=== PATIENT | male | born 1965 | race African-American/Black ===

== ENCOUNTER 2021-08-08 21:26 | Emergency (ER) | payer SELFPAY ==
--- NOTE | ~2021-08-08 | XR_ITS ---
XR chest 2V DATE: 08/08/2021 22:30 INDICATION: Intermittent left-sided burning chest pain since June TECHNIQUE: PA and lateral COMPARISON: None FINDINGS: Normal heart size. Is mild aortic unfolding. No hilar or mediastinal enlargement. No pulmonary infiltrate or consolidation, pleural effusion or pulmonary vascular congestion or pneumo thorax. IMPRESSION: No active cardiopulmonary disease Reviewed, dictated and finalized at location A. TRICAL ENGINEERING MANAGER
[2021-08-08 21:45] VITALS: BP 108/80; PULSE 109; RESP 18; O2SAT 99
--- NOTE | 2021-08-08 22:04 | ECG_ITS ---
Measurements Intervals [place] Rate: 109 P: 54 NE: 176 QRS: -61 QRSD: 109 T: 52 QT: 339 QTc: 458 Interpretive Statements SINUS TACHYCARDIA VENTRICULAR TRIGEMINY INCOMPLETE RIGHT BUNDLE BRANCH BLOCK LEFT ANTERIOR FASCICULAR BLOCK ABNORMAL ECG Electronically Signed On 08-10-2021 17:13:53 CONTENT MANAGER by Sathya Bañuelos D.O.
[2021-08-08 22:15] LABS: Basophils Percent Auto 0.4 % (0.2-1.2); Eosinophils Absolute Auto 0.1 K/mm3 (0-0.3); Eosinophils Percent Auto 1.1 % (0-4.4); Hematocrit 40.9 % (42.0-52.0); Hemoglobin 14.5 g/dL (14.0-18.0); Immature Granulocyte Absolute 0.01 K/mm3 (0.00-0.031); Immature Granulocyte Percent A 0.1 % (0-0.5); Lymphocytes Absolute Auto 1.72 K/mm3 (0.9-3.2); Lymphocytes Percent Auto 24.4 % (18.3-44.2); Mean Corpuscular HGB Conc 35.5 g/dl (32-36); Mean Corpuscular Hemoglobin 31.5 pg (26-34); Mean Corpuscular Volume 88.9 fl (80-100); Mean Platelet Volume 9.7 fl (7.4-10.4); Monocytes Absolute Auto 0.8 K/mm3 (0.1-0.6); Monocytes Percent Auto 11.1 % (2.6-8.5); Neutrophils Absolute Auto 4.4 K/mm3 (1.3-6.7); Neutrophils Percent Auto 62.9 % (45.5-73.1); Platelet Count Result 263 k/mm3 (150-375); Red Cell Distribution Width 12.2 % (11.5-14.5)
[2021-08-08 22:28] LABS: Partial Thromboplastin Time 26.2 SECONDS (22.3-36.8); Prothrombin Time 13.3 Seconds (11.1-14.7)
[2021-08-08 22:29] LABS: Alanine Aminotransferase 24 U/L (4-50); Albumin Level 4.5 g/dL (3.5-5.1); Alkaline Phosphatase 74 U/L (38-126); Anion Gap 10 mmol/L (8-16); Aspartate Amino Transferase 32 U/L (17-59); Bilirubin,Total 0.5 mg/dL (0.2-1.3); Blood Urea Nitrogen 23 mg/dL (9-20); Calcium 9.6 mg/dL (8.4-10.2); Carbon Dioxide 27 mmol/L (22-30); Chloride 100 mmol/L (98-107); Estimated CRCL calculation 69 ml/min; Estimated Glomerular Filt Rate 49; Glucose 128 mg/dL (65-110); Lipase 110 U/L (23-300); Potassium 4.3 mmol/L (3.4-5.0); Sodium 137 mmol/L (137-145)
[2021-08-08 22:40] LABS: Troponin I < 0.012 ng/mL (0.000-0.034)
[2021-08-08 23:56] VITALS: BP 125/91; PULSE 88; RESP 19; TEMP 36.7; O2SAT 97
[2021-08-09] VITALS (8 sets, daily range): BP systolic 103–148; BP diastolic 62–97; PULSE 73–88; RESP 13–19; O2SAT 95–99
[2021-08-09 02:33] LABS: Troponin I < 0.012 ng/mL (0.000-0.034)
[2021-08-09] MEDS: BELLADONNA ALK/PHENOB ELIX 10 ML, MAG HYDROX/ALUMINUM HYD/SIMETH 30 ML, LIDOCAINE HCL 2... PO (04:12)
--- NOTE | 2021-08-09 04:12 | ED.GENADULT ---
HPI - General Adult General Chief complaint: Chest Pain Stated complaint: Chest pain Time Seen by Provider: 08/09/21 03:49 History of Present Illness HPI narrative: Patient 55-year-old gentleman who presents the emergency department with chief complaint of chest discomfort. Patient reports that he was recently [facility] after he was diagnosed with a pulmonary embolism patient states that he has been taking his Eliquis although initially was not following directions adequately-infection he has noticed that he is having a burning sensation in his chest that is worse with eating patient states that this feels different from whenever he had the pulmonary embolism and states that he feels more burning that it does sharp and pleuritic. Patient denies shortness of breath at this time Related Data Allergies Allergy/AdvReac Type Severity Reaction Status Date / Time No Known Allergies Allergy Verified 08/09/21 02:43 Review of Systems Review of Systems: A 10 system review of systems was completed on the patient and is negative except for what is stated in the HPI. Nursing and ancillary documentation was reviewed. Exam Narrative: GENERAL: Well-appearing, well-nourished, and in no acute distress. HEAD: Normocephalic, atraumatic. EYES: PERRLA and EOMI. ENT: Nares clear, no rhinorrhea or epistaxis. Mucous membranes moist. NECK: Supple. CHEST: Clear to auscultation. No respiratory distress. HEART: Regular rate and rhythm. No murmur heard. Normal peripheral pulses. ABDOMEN: Soft, nontender, nondistended, normal active bowel sounds. EXTREMITIES: Normal range of motion. No edema. SKIN: Warm, dry, no rash. NEURO: No focal deficits. Alert and oriented x3. PSYCH: Normal mood and affect. Course Course Emergency Course: EKG is sinus rhythm rate of [address] elevation or ST depression there are occasional PVCs Vital Signs Vital signs: Vital Signs Pulse Rate 109 H 08/08/21 21:45 Respiratory Rate 18 08/08/21 21:45 Blood Pressure 108/80 08/08/21 21:45 Pulse Oximetry 99 08/08/21 21:45 Temperature 36.7 C 08/08/21 23:56 Pulse Rate 73 08/09/21 04:59 Respiratory Rate 14 08/09/21 04:59 Blood Pressure 131/93 H 08/09/21 04:59 Pulse Oximetry 98 08/09/21 04:59 Medical Decision Making Vital Signs Vital Signs: Vital Signs Pulse Rate 109 H 08/08/21 21:45 Respiratory Rate 18 08/08/21 21:45 Blood Pressure 108/80 08/08/21 21:45 Pulse Oximetry 99 08/08/21 21:45 Temperature 36.7 C 08/08/21 23:56 Pulse Rate 73 08/09/21 04:59 Respiratory Rate 14 08/09/21 04:59 Blood Pressure 131/93 H 08/09/21 04:59 Pulse Oximetry 98 08/09/21 04:59 Lab Data Result diagrams: 08/08/21 22:09 08/08/21 22:09 Labs: Lab Results 08/08/21 08/08/21 08/08/21 Range/Units 22:09 22:09 22:09 WBC 7.0 (4.5-10.0) K/mm3 RBC 4.60 (4.6-6.20) M/mm3 Hgb 14.5 (14.0-18.0) g/dL Hct 40.9 L (42.0-52.0) % MCV 88.9 (80-100) fl MCH 31.5 (26-34) pg MCHC 35.5 (32-36) g/dl RDW 12.2 (11.5-14.5) % Plt Count 263 (150-375) k/mm3 MPV 9.7 (7.4-10.4) fl Immature Gran % (Auto) 0.1 (0-0.5) % Neut % (Auto) 62.9 (45.5-73.1) % Lymph % (Auto) 24.4 (18.3-44.2) % [place] % (Auto) 11.1 H (2.6-8.5) % Eos % (Auto) 1.1 (0-4.4) % Baso % (Auto) 0.4 (0.2-1.2) % Lymph # (Auto) 1.72 (0.9-3.2) K/mm3 [place] # (Auto) 0.8 H (0.1-0.6) K/mm3 Eos # (Auto) 0.1 (0-0.3) K/mm3 Baso # (Auto) 0.0 (0.0-0.1) K/mm3 Abs Immat Gran (auto) 0.01 (0.00-0.031) K/mm3 Absolute Neuts (auto) 4.4 (1.3-6.7) K/mm3 Absolute Nucleated RBC 0.0 (0.0-0.012) K/mm3 Nucleated RBC % 0.0 (0.0-0.2) % PT 13.3 (11.1-14.7) Seconds INR 1.0 APTT 26.2 (22.3-36.8) SECONDS Sodium 137 (137-145) mmol/L Potassium 4.3 (3.4-5.0) mmol/L Chloride 100 (98-107) mmol/L Carbon Dioxide 27 (22-30) mmol/L Anion Gap
== END 2021-08-09 05:42 | disposition home or self-care (01) ==
PROVIDERS: Emergency Provider Emergency Medicine
DX: R07.89 Other chest pain (principal); K21.9 Gastro-esophageal reflux disease without esophagitis; Z86.711 Personal history of pulmonary embolism; Z79.01 Long term (current) use of anticoagulants; R00.0 Tachycardia, unspecified; R00.8 Other abnormalities of heart beat; I45.2 Bifascicular block
CPT/HCPCS: 36415; 71046; 80053; 83690; 84484; 85025; 85610; 85730; 93005; 99284; A9270

== ENCOUNTER 2021-08-13 12:23 | Emergency (ER) | payer SELFPAY ==
--- NOTE | ~2021-08-13 | XR_ITS ---
EXAMINATION: XR chest 2V 08/13/2021 13:00 INDICATION: Chest pain PROCEDURE: PA and lateral views of the chest COMPARISON: 08/08/2021 FINDINGS: The lungs are clear. The cardiomediastinal silhouette is within normal limits. There are no pleural effusions. There is no pneumothorax suspected. IMPRESSION: 1: NO ACUTE CARDIOPULMONARY DISEASE. Reviewed, dictated and finalized at location A. LING ENGINEERING MANAGER
--- NOTE | 2021-08-13 12:25 | ECG_ITS ---
Measurements Intervals [place] Rate: 97 P: 57 MN: 191 QRS: -52 QRSD: 112 T: 36 QT: 356 QTc: 454 Interpretive Statements SINUS RHYTHM VENTRICULAR TRIGEMINY LEFT ANTERIOR FASCICULAR BLOCK ABNORMAL ECG Electronically Signed On 08-13-2021 15:15:25 MULTICULTURAL SERVICES LIBRARIAN by Sathya Bañuelos D.O.
[2021-08-13 12:30] VITALS: BP 142/93; PULSE 76; RESP 20; TEMP 35.5; O2SAT 99
[2021-08-13 12:43] LABS: Basophils Percent Auto 0.3 % (0.2-1.2); Eosinophils Percent Auto 0.4 % (0-4.4); Hematocrit 41.1 % (42.0-52.0); Hemoglobin 14.6 g/dL (14.0-18.0); Immature Granulocyte Absolute 0.01 K/mm3 (0.00-0.031); Immature Granulocyte Percent A 0.1 % (0-0.5); Lymphocytes Absolute Auto 1.37 K/mm3 (0.9-3.2); Lymphocytes Percent Auto 19.3 % (18.3-44.2); Mean Corpuscular HGB Conc 35.5 g/dl (32-36); Mean Corpuscular Hemoglobin 31.5 pg (26-34); Mean Corpuscular Volume 88.6 fl (80-100); Mean Platelet Volume 9.7 fl (7.4-10.4); Monocytes Absolute Auto 0.5 K/mm3 (0.1-0.6); Monocytes Percent Auto 6.3 % (2.6-8.5); Neutrophils Absolute Auto 5.2 K/mm3 (1.3-6.7); Neutrophils Percent Auto 73.6 % (45.5-73.1); Platelet Count Result 272 k/mm3 (150-375); Red Blood Count 4.64 M/mm3 (4.6-6.20); Red Cell Distribution Width 12.2 % (11.5-14.5); White Blood Count 7.1 K/mm3 (4.5-10.0)
[2021-08-13 12:52] LABS: Prothrombin Time 13.4 Seconds (11.1-14.7)
[2021-08-13 12:53] LABS: Alanine Aminotransferase 21 U/L (4-50); Albumin Level 4.6 g/dL (3.5-5.1); Alkaline Phosphatase 71 U/L (38-126); Anion Gap 10 mmol/L (8-16); Aspartate Amino Transferase 27 U/L (17-59); Bilirubin,Total 0.6 mg/dL (0.2-1.3); Blood Urea Nitrogen 20 mg/dL (9-20); Calcium 9.7 mg/dL (8.4-10.2); Carbon Dioxide 30 mmol/L (22-30); Chloride 101 mmol/L (98-107); Estimated CRCL calculation 73 ml/min; Estimated Glomerular Filt Rate > 60; Glucose 118 mg/dL (65-110); Lipase 89 U/L (23-300); Partial Thromboplastin Time 26.3 SECONDS (22.3-36.8); Potassium 4.7 mmol/L (3.4-5.0); Sodium 141 mmol/L (137-145)
[2021-08-13 13:05] LABS: Troponin I < 0.012 ng/mL (0.000-0.034)
[2021-08-13 14:48] VITALS: BP 132/78; PULSE 88; RESP 20; TEMP 37; O2SAT 98
--- NOTE | 2021-08-13 17:55 | ED.GENADULT ---
HPI - General Adult General Chief complaint: Chest Pain Stated complaint: CP, high BP Time Seen by Provider: 08/13/21 17:53 Source: patient Mode of arrival: ambulatory Limitations: no limitations History of Present Illness HPI narrative: Patient is here for evaluation of intermittent hypertension on his home machine. He states that he also cannot sleep because he is awakened by a racing heart. He was recently diagnosed with a right upper lobe PE and has been treated with Eliquis. He is very anxious about this blood clot. He also states that several days ago he had numbness in both legs. It is since resolved, so he was worried that he may have bilateral lower extremity blood clots. They switched his antihypertensive from amlodipine to losartan last week. He was seen here 4 days ago with same complaint. 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 Exam Const: General: healthy appearing and no acute distress Orientation/consciousness: patient oriented x3 HENMT: Head: normal to inspection Eyes: Conjunctivae: conjunctivae normal Pupils: Equal, round and reactive pupils present Chest: Chest palpation & inspection: normal inspection of the chest Resp: Effort & Inspection: normal respiratory effort Auscultation: clear to auscultation bilaterally Cardio: Rate: regular rate Rhythm: regular rhythm GI: GI Palp: Yes Soft to palpation Auscultation: normal bowel sounds Skin: General skin exam: normal color Neuro: General: patient oriented x3 and no focal motor deficits Extrem: General: normal to inspection and no clubbing, cyanosis or edema Psych: Appearance: grossly normal Affect: Anxious affect present Course Course Emergency Course: Patient is very anxious about the blood clot in his lung, he takes his blood pressure repeatedly at home. He is jogging regularly, and eating a high protein diet. Had a lot of discussion about normal blood pressure ranges, calming himself, all the things that he is doing right to take care of himself. He has an appointment with his PMD 08/20. Reviewed his labs with him and he is calm and ready to go. Vital Signs Vital signs: Vital Signs Temperature 35.5 C L 08/13/21 12:30 Pulse Rate 76 08/13/21 12:30 Respiratory Rate 20 08/13/21 12:30 Blood Pressure 142/93 H 08/13/21 12:30 Pulse Oximetry 99 08/13/21 12:30 Temperature 37.0 C 08/13/21 14:48 Pulse Rate 88 08/13/21 14:48 Respiratory Rate 20 08/13/21 14:48 Blood Pressure 132/78 08/13/21 14:48 Pulse Oximetry 98 08/13/21 14:48 Medical Decision Making Vital Signs Vital Signs: Vital Signs Temperature 35.5 C L 08/13/21 12:30 Pulse Rate 76 08/13/21 12:30 Respiratory Rate 20 08/13/21 12:30 Blood Pressure 142/93 H 08/13/21 12:30 Pulse Oximetry 99 08/13/21 12:30 Temperature 37.0 C 08/13/21 14:48 Pulse Rate 88 08/13/21 14:48 Respiratory Rate 20 08/13/21 14:48 Blood Pressure 132/78 08/13/21 14:48 Pulse Oximetry 98 08/13/21 14:48 Lab Data Result diagrams: 08/13/21 12:37 08/13/21 12:37 Labs: Lab Results 08/13/21 08/13/21 08/13/21 Range/Units 12:37 12:37 12:37 WBC 7.1 (4.5-10.0) K/mm3 RBC 4.64 (4.6-6.20) M/mm3 Hgb 14.6 (14.0-18.0) g/dL Hct 41.1 L (42.0-52.0) % MCV 88.6 (80-100) fl MCH 31.5 (26-34) pg MCHC 35.5 (32-36) g/dl RDW 12.2 (11.5-14.5) % Plt Count 272 (150-375) k/mm3 MP
--- NOTE | 2021-08-13 18:03 | PC.NURSE ---
aspirin with held due to currently on eliquis
--- NOTE | 2021-08-13 18:10 | PC.NURSE ---
Patient presents to ED with report of feelings of chest pain. Patient reports episodes of palpitations prior and spikes in high blood pressure. Patient being treated for PE and on eliquis. Provider in to see patient. 20g IV initiated in left FA.
[2021-08-13 18:35] VITALS: BP 145/100; PULSE 88; RESP 12; O2SAT 99
[2021-08-13 18:36] VITALS: PULSE 80
[2021-08-13 18:59] LABS: Troponin I < 0.012 ng/mL (0.000-0.034)
[2021-08-13 19:13] VITALS: BP 133/93; PULSE 79; RESP 18; O2SAT 98
[2021-08-13 20:01] VITALS: BP 127/79; PULSE 71; RESP 18; O2SAT 98
== END 2021-08-13 20:03 | disposition home or self-care (01) ==
PROVIDERS: Emergency Provider Family Medicine
DX: I10 Essential (primary) hypertension (principal); F41.9 Anxiety disorder, unspecified; Z86.711 Personal history of pulmonary embolism; R00.8 Other abnormalities of heart beat; I44.4 Left anterior fascicular block; Z79.01 Long term (current) use of anticoagulants
CPT/HCPCS: 36415; 71046; 80053; 83690; 84484; 85025; 85610; 85730; 93005; 99284; A9270

== ENCOUNTER 2022-06-18 15:22 | Observation (INO) | payer SELFPAY ==
[2022-06-18] VITALS (18 sets, daily range): BP systolic 122–148; BP diastolic 88–107; PULSE 65–102; RESP 12–18; TEMP 36.1–36.4; O2SAT 95–100; BMI 37.0
--- NOTE | ~2022-06-18 | XR_ITS ---
EXAMINATION: XR chest 2V 06/18/2022 16:41 INDICATION: Chest pain and shortness of breath PROCEDURE: 2 view chest COMPARISON: 08/13/2021 FINDINGS: The lungs are clear. The cardiomediastinal silhouette is within normal limits. There are no pleural effusions. There is no pneumothorax suspected. There is calcified granuloma in the left mid thorax. IMPRESSION: 1: NO ACUTE CARDIOPULMONARY DISEASE. Reviewed, dictated and finalized at location B.
--- NOTE | 2022-06-18 15:29 | ECG_ITS ---
Measurements Intervals [place] Rate: 92 P: 40 DC: 196 QRS: -57 QRSD: 122 T: 46 QT: 371 QTc: 460 Interpretive Statements SINUS RHYTHM LEFT ANTERIOR FASCICULAR BLOCK [QRS AXIS <= -45, QR IN I, RS IN II] INCOMPLETE RIGHT BUNDLE BRANCH BLOCK COMPARED TO ECG 08/13/2021 12:30:16 NO SIGNIFICANT CHANGES Electronically Signed On 06-18-2022 16:01:41 CDT by Tawanna Cade M.D.
[2022-06-18 15:46] LABS: Basophils Percent Auto 0.4 % (0.2-1.2); Eosinophils Percent Auto 0.4 % (0-4.4); Hematocrit 46.5 % (42.0-52.0); Immature Granulocyte Absolute 0.01 K/mm3 (0.00-0.031); Immature Granulocyte Percent A 0.2 % (0-0.5); Lymphocytes Absolute Auto 1.04 K/mm3 (0.9-3.2); Lymphocytes Percent Auto 19.5 % (18.3-44.2); Mean Corpuscular HGB Conc 34.4 g/dl (32-36); Mean Corpuscular Hemoglobin 30.7 pg (26-34); Mean Corpuscular Volume 89.3 fl (80-100); Mean Platelet Volume 9.3 fl (7.4-10.4); Monocytes Absolute Auto 0.5 K/mm3 (0.1-0.6); Monocytes Percent Auto 9.2 % (2.6-8.5); Neutrophils Absolute Auto 3.8 K/mm3 (1.3-6.7); Neutrophils Percent Auto 70.3 % (45.5-73.1); Platelet Count Result 244 k/mm3 (150-375); Red Blood Count 5.21 M/mm3 (4.6-6.20); Red Cell Distribution Width 12.4 % (11.5-14.5); White Blood Count 5.3 K/mm3 (4.5-10.0)
[2022-06-18 16:00] LABS: Alanine Aminotransferase 24 U/L (6-50); Albumin Level 4.7 g/dL (3.5-5.1); Alkaline Phosphatase 73 U/L (38-126); Anion Gap 11 mmol/L (8-16); Aspartate Amino Transferase 28 U/L (17-59); Bilirubin,Total 0.8 mg/dL (0.2-1.3); Blood Urea Nitrogen 16 mg/dL (9-20); Calcium 9.3 mg/dL (8.4-10.2); Carbon Dioxide 24 mmol/L (22-30); Chloride 104 mmol/L (98-107); Estimated CRCL calculation 100 ml/min; Estimated Glomerular Filt Rate > 60; Glucose 96 mg/dL (65-110); Potassium 4.1 mmol/L (3.4-5.0); Sodium 139 mmol/L (137-145)
--- NOTE | 2022-06-18 20:15 | ED.GENADULT ---
HPI - General Adult General Chief complaint: Shortness of Breath/Dyspnea Stated complaint: SOB Time Seen by Provider: 06/18/22 20:10 Source: RN notes reviewed History of Present Illness HPI narrative: Patient presents emergency room from home for chest pain. Patient states he has been having intermittent chest pain over the left side of his chest this been associated with shortness of breath. States that the chest pain is described as a burning and heaviness does not know anything that makes the pain better or worse. He states that he had been at another hospital and told that he needed a CT angio of his heart however he is unable to tell me which hospital that was that he denies any fevers or chills abdominal pain nausea or vomiting states he does have a history of pulmonary embolisms and is on Eliquis which she has been taking. Patient is a poor historian Related Data Allergies Allergy/AdvReac Type Severity Reaction Status Date / Time No Known Allergies Allergy Verified 08/09/21 02:43 Review of Systems Review of Systems: Gen.: Denies fevers or chills ENT: Denies congestion Respiratory: D reports shortness of breath CV: Reports GI: Denies abdominal pain nausea, emesis or diarrhea Musculoskeletal: Denies back pain or muscle pain Neuro: Denies numbness, tingling, weakness or focal weakness Skin: Denies rash Except as documented, all other systems reviewed and negative PMFSH Past Medical History Medical History (Updated 06/18/22 @ 21:54 by Pino Rowe DO) Hypercholesterolemia Hypertension Pulmonary embolism Social History Social History Smoking status: Never smoker Alcohol intake: never Substance use: never Additional occupation/education comments: truck operator Exam Narrative: APPEARANCE: No acute distress, nontoxic, resting in bed EYES: EOMI HEENT: Normocephalic, atraumatic, OMM RESPIRATORY: No respiratory distress Clear to auscultation bilaterally with no rhonchi wheezing or rales. CARDIOVASCULAR: Regular rate and rhythm without murmurs rubs or gallops. ABDOMINAL: Soft, nontender, nondistended, no rebound or guarding MUSCULOSKELETAl: Moves all extremities. No clubbing, cyanosis or edema. NEURO: Awake and alert. Following commands, speech normal, no focal deficits SKIN:: Warm, dry. No rashes lesions or abrasions PSYCHIATRIC: Normal affect/mood, Course Course Emergency Course: Discussed with Dr. De Santiago presentation work-up agrees with consult Discussed with Dr. Russell agrees with admission Discussed with patient and family results of workup and diagnosis. Discussed need for admission. Patient and family understand and agree to current treatment plan Vital Signs Vital signs: Vital Signs Temperature 97.0 F L 06/18/22 15:25 Pulse Rate 102 H 06/18/22 15:25 Respiratory Rate 18 06/18/22 15:25 Blood Pressure 129/92 H 06/18/22 15:25 Pulse Oximetry 100 06/18/22 15:25 Oxygen Delivery Room Air 06/18/22 15:25 Temperature 97.0 F L 06/18/22 15:25 Pulse Rate 102 H 06/18/22 15:25 Respiratory Rate 18 06/18/22 15:25 Blood Pressure 129/92 H 06/18/22 15:25 Pulse Oximetry 100 06/18/22 20:13 Oxygen Delivery Room Air 06/18/22 20:13 Medical Decision Making Vital Signs Vital Signs: Vital Signs Temperature 97.0 F L 06/18/22 15:25 Pulse Rate 102 H 06/18/22 15:25 Respiratory Rate 18 06/18/22 15:25 Blood Pressure 129/92 H 06/18/22 15:25 Pulse Oximetry 100 06/18/22 15:25 Oxygen Delivery Room Air 06/18/22 15:25 Temperature 97.0 F L 06/18/22 15:25 Pulse Rate 102 H 06/18/22 15:25 Respiratory Rate 18 06/18/22 15:25 Blood Pressure 129/92 H 06/18/22 15:25 Pulse Oximetry 100 06/18/22 20:13 Oxygen Delivery Room Air 06/18/22 20:13 Lab Data Result diagrams: 06/18/22 15:37 06/18/22 15:37 Labs: Lab Results 06/18/22 06/18/22 06/18/22 Range/Unit
[2022-06-18 21:05] LABS: Lipase 58 U/L (23-300)
[2022-06-18 21:18] LABS: Troponin I < 0.012 ng/mL (0.000-0.034)
[2022-06-18] MEDS: ASPIRIN 81 MG CHEWABLE TABLET 324 MG PO (21:46)
[2022-06-18 22:50] LABS: Influenza A QL RT-PCR Negative (Negative); Influenza B QL RT-PCR Negative (Negative); SARS-CoV-2 RNA PCR Negative
[2022-06-19] VITALS (8 sets, daily range): BP systolic 117–140; BP diastolic 79–86; PULSE 64–82; RESP 12–18; TEMP 36.2–36.6; O2SAT 98–100
--- NOTE | 2022-06-19 | ADMGEN ---
This patient, Dwight Montalvo, was admitted to IMU Room 205-01. Patient/family oriented to hospital policies and general routines including ID bracelet, bed and alarms, visiting hours, pain management, procedures, bathroom and other care routines, personal items, smoking policy, room service/diet, and visiting hours. Information on how to activate the Rapid Response Team has been discussed. Patient/Family are encouraged to report perceived risks to care and to ask questions if they do not understand what they are told or what they should do.
--- NOTE | 2022-06-19 00:58 | PM.IMHP ---
H&P: HPI History of Present Illness Date/Time: 06/19/22 00:58 Chief Complaint: chest discomfort Narrative: This is a 56-year-old male with past medical history significant for hypertension, pulmonary embolism, patient is on anticoagulation. Patient presents from outside hospital where apparently he had been admitted for several days and had workup for chest discomfort he presents to our emergency room stating that he needs a test that is not done at outside hospital at the time of my visit his complaining of precordial chest pain rated as 6/10 in intensity. patient denies any PND, orthopnea, leg swelling, no fevers, no rigors, no chills, no cough, no sputum production, no lightheadedness, no syncope, no near syncope, preliminary workup has been significant for troponins x3 0.012, a chest x-ray was reported as no cardiopulmonary acute abnormality. Patient is been admitted for further evaluation management and treatment. Review of Systems Review of Systems: Chest discomfort Constitutional: Constitutional: Denies chills, Denies fever(s), Denies malaise and Denies weakness Eyes: Eyes: Denies change in vision ENT: Denies dysphagia, Denies vertigo, Denies dizziness and Denies odynophagia Cardiovascular: Cardiovascular: Reports chest pain and Denies dyspnea on exertion Respiratory: Respiratory: Denies cough and Denies pain on inspiration Gastrointestinal: Gastrointestinal: Denies abdominal pain, Denies dyspepsia, Denies heartburn, Denies diarrhea, Denies nausea and Denies vomiting Genitourinary: Genitourinary: Denies dysuria Musculoskeletal: Musculoskeletal: Denies joint swelling, Denies limited range of motion and Denies muscle weakness Integumentary/Breasts: Skin/Breast: Denies rash Neurologic: Denies vertigo, Denies dizziness, Denies focal weakness and Denies Sensory deficit (Neuro) Psychiatric: Psychiatric: Reports no additional psychiatric complaints and Reports as per HPI Endocrine: Endocrine: Denies cold intolerance, Denies flushing, Denies heat intolerance, Denies polyphagia, Denies polydipsia and Denies palpitations Hematologic/Lymphatic: Hematologic/Lymphatic: Reports no additional hematologic/lymphatic complaints and Reports as per HPI Allergic/Immunologic: Allergic/Immunologic: Reports no additional allergic/immunologic complaints and Reports as per HPI PMF Past Medical History Medical History (Updated 06/18/22 @ 21:54 by Pino Rowe DO) Hypercholesterolemia Hypertension Pulmonary embolism Social History Social History Smoking status: Never smoker Alcohol intake: never Substance use: never Substance use type: does not use Has the Lack of Transportation Kept You From Medical Appointments or From Getting Medications?: No Within the Past 12 Months, Were You Worried Whether Your Food Would Run Out Before You Got Money to Buy More?: Never True What is Your Housing Situation Today?: I Have Housing Are You Worried That in the Next 2 Months, You May Not Have Your Own Housing to Live In?: No Do You Have Trouble Paying Your Heating Or Electricity Bill?: No Do You Have Trouble Paying For Medicines?: No Are You Currently Unemployed and Looking for Work?: No Highest Level of Education Completed: Decline to Answer Do You Have Trouble With Childcare or the Care of a Family Member?: No 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
[2022-06-19 02:11] LABS: Troponin I 0.027 ng/mL (0.000-0.034)
[2022-06-19 05:05] LABS: Basophils Percent Auto 0.4 % (0.2-1.2); Eosinophils Absolute Auto 0.1 K/mm3 (0-0.3); Hematocrit 42.9 % (42.0-52.0); Hemoglobin 14.9 g/dL (14.0-18.0); Immature Granulocyte Absolute 0.01 K/mm3 (0.00-0.031); Immature Granulocyte Percent A 0.2 % (0-0.5); Lymphocytes Absolute Auto 1.49 K/mm3 (0.9-3.2); Lymphocytes Percent Auto 30.4 % (18.3-44.2); Mean Corpuscular HGB Conc 34.7 g/dl (32-36); Mean Corpuscular Hemoglobin 30.5 pg (26-34); Mean Corpuscular Volume 87.7 fl (80-100); Mean Platelet Volume 9.6 fl (7.4-10.4); Monocytes Absolute Auto 0.6 K/mm3 (0.1-0.6); Monocytes Percent Auto 12.2 % (2.6-8.5); Neutrophils Absolute Auto 2.7 K/mm3 (1.3-6.7); Neutrophils Percent Auto 55.8 % (45.5-73.1); Platelet Count Result 225 k/mm3 (150-375); Red Blood Count 4.89 M/mm3 (4.6-6.20); Red Cell Distribution Width 12.5 % (11.5-14.5); White Blood Count 4.9 K/mm3 (4.5-10.0)
[2022-06-19 05:08] LABS: Alanine Aminotransferase 21 U/L (6-50); Albumin Level 4.3 g/dL (3.5-5.1); Alkaline Phosphatase 66 U/L (38-126); Anion Gap 8 mmol/L (8-16); Aspartate Amino Transferase 28 U/L (17-59); Bilirubin,Total 0.8 mg/dL (0.2-1.3); Blood Urea Nitrogen 18 mg/dL (9-20); Calcium 8.8 mg/dL (8.4-10.2); Carbon Dioxide 31 mmol/L (22-30); Chloride 100 mmol/L (98-107); Estimated CRCL calculation 92 ml/min; Estimated Glomerular Filt Rate > 60; Glucose 105 mg/dL (65-110); Potassium 3.8 mmol/L (3.4-5.0); Sodium 139 mmol/L (137-145)
[2022-06-19 05:18] LABS: Troponin I < 0.012 ng/mL (0.000-0.034)
[2022-06-19] MEDS: LOSARTAN POTASSIUM 25 MG TABLET PO (08:14)
[2022-06-19] MEDS: APIXABAN 5 MG TABLET PO (08:14)
[2022-06-19] MEDS: ATORVASTATIN 40 MG TABLET PO (08:14)
[2022-06-19] MEDS: amLODIPine BESYLATE 5 MG TABLET 10 MG PO (08:15)
[2022-06-19] MEDS: PANTOPRAZOLE 40 MG TABLET PO (08:15)
--- NOTE | 2022-06-19 11:43 | PM.CNCAR ---
Assessment and Plan Assessment and plan (1) Chest pain: Code(s): R07.9 - Chest pain, unspecified Status: Acute Assessment and Plan: Atypical chest pain. Sounds pleuritic. Has been ongoing since his PE diagnosis in July. Troponins negative. EKG without ischemic changes. Unclear of what happened at [facility] - please obtain the records. Patient was told he came here to get CTA heart, but CTA Coronary / Heart is not done here. (2) Pulmonary embolism: Code(s): I26.99 - Other pulmonary embolism without acute cor pulmonale Status: Acute Assessment and Plan: On Eliquis for anticoagulation. History of Present Illness History of Present Illness Consult date/time: 06/19/22 11:43 Requesting physician: Pino Rowe DO Consult reason: chest pain Reason For Visit: chest pain Narrative: Patient is a 56-year-old male with a history of hypertension, pulmonary embolism on anticoagulation for who we are being consulted for chest pain. Patient was recently admitted at [facility]. Patient states he underwent a stress test there and it was abnormal, therefore, he was recommend what sounds like a cardiac cath based on his description. However, patient did not want invasive procedure and preferred non-invasive. He states that he was told he could get a CT angio heart. Patient states that he called our hospital and was told that we do CT coronary/heart over here and so he left [place] and drove himself here (was not a [id number] transfer). Patient reports that he was diagnosed with a PE in 07/2021, states that it was caused by immobility. Has had chest pain ever since July. Chest pain is not associated with exertion. Worsens with deep inspiration. We do not have any records whatsoever from [place], and therefore, this is all based on patient report. Troponins here are negative. EKG with sinus rhythm with IRBBB, unchanged compared to our old EKGs. Review of Systems Review of Systems: 10-point ROS obtained. Negative, unless stated in HPI. [facility] Past Medical History Medical History Hypercholesterolemia Hypertension Pulmonary embolism Social History Social History Smoking status: Never smoker Alcohol intake: never Substance use: never Substance use type: does not use Has the Lack of Transportation Kept You From Medical Appointments or From Getting Medications?: No Within the Past 12 Months, Were You Worried Whether Your Food Would Run Out Before You Got Money to Buy More?: Never True What is Your Housing Situation Today?: I Have Housing Are You Worried That in the Next 2 Months, You May Not Have Your Own Housing to Live In?: No Do You Have Trouble Paying Your Heating Or Electricity Bill?: No Do You Have Trouble Paying For Medicines?: No Are You Currently Unemployed and Looking for Work?: No Highest Level of Education Completed: Decline to Answer Do You Have Trouble With Childcare or the Care of a Family Member?: No 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 Spiritual care concerns: No Meds Home Medications and Allergies Home Medications Medication Instructions Recorded Confirmed Type apixaban 5 mg tablet (Eliquis) 5 mg PO BID 06/18/22 06/18/22 History amlodipine 10 mg tablet 10 mg PO DAILY 06/19/22 06/19/22 History atorvastatin 40 mg tablet 40 mg PO DAILY 06/19/22 06/19/22 History losartan 25 mg tablet 25 mg PO DAILY 06/19/22 06/19/22 History pantoprazole 40 mg tablet,delayed 40 mg PO DAILY 06/19/22 06/19/22 History release Allergies Allergy/AdvReac Type Severity Reaction Status Date / Time No Known Allergies Allergy Verified 08/09/21 02:43 Vital Signs Vital Signs - 24 hr 06/18/22 15:25 06/18/22 20:12 06/18/22 20:13 Temperature 36.1 C L Pulse Rate 102 H Respiratory Rate 18 Bloo
--- NOTE | 2022-06-19 13:26 | PM.IMPN ---
Progress Note: A&P Assessment and Plan (1) Chest pain: Code(s): R07.9 - Chest pain, unspecified Status: Acute Assessment and Plan: patient with pleuritic atypical chest pain. Symptoms seemed to improve with GI cocktail. Troponins are negative. EKG showing no acute findings. Presumably he has had a recent abnormal stress test had another hospital and we are awaiting records. Discussed with Cardiology. Patient is on Eliquis so this would have to be home held for 2 days before his heart catheterization could be performed. The document review specialist also stated that we do not perform CT angiogram of the coronary vessels here. This was explained to the patient. Chest pain is resolved. Continue to monitor. Awaiting records. Appreciate Cardiology input. (2) Hypercholesterolemia: Code(s): E78.00 - Pure hypercholesterolemia, unspecified Status: Acute Assessment and Plan: LFTs normal. Continue Lipitor. (3) Hypertension: Code(s): I10 - Essential (primary) hypertension Status: Acute Assessment and Plan: Blood pressure stable. Continue Norvasc and Cozaar. (4) Pulmonary embolism: Code(s): I26.99 - Other pulmonary embolism without acute cor pulmonale Status: Acute Assessment and Plan: Stable. On room air. Continue Eliquis. Subjective Date/time seen: 06/19/22 13:26 Interval history: 56yo male with hx of HTN, HLD and PE here for chest pain. Patient has had chest pain off and on for the past 10 months since his PE but has been more constant recently. He was hospitalized at another facility for the chest pain recently. He states the stress test was abnormal and a heart catheterization was recommended but patient refused. He left the hospital and presented to our emergency room with complaints of chest pain. He was under the impression that he could have a CT of his heart to help determine if he has heart disease. He does state that the chest pain did improve after a GI cocktail. Exam Narrative: AF 97.6 117/79 73 12 99% ra Gen - NARD Chest - CTA bilaterally, nml RR CV - RRR S1/S2.Telemetry showing no significant dysrhythmia Abd - Soft, NT/ND, Positive BS Ext - No pedal edema Neuro - Alert and oriented. Nonfocal exam. Psych - Nml mood and affect Skin - Warm and dry Objective Data Vital Signs Vital Signs: Vital Signs - 24 hr 06/18/22 15:25 06/18/22 20:12 06/18/22 20:13 Temperature 97.0 F L Pulse Rate 102 H Respiratory Rate 18 Blood Pressure 129/92 H Pulse Oximetry 100 100 100 Oxygen Delivery Room Air Room Air Room Air 06/18/22 20:24 06/18/22 20:33 06/18/22 20:45 Temperature Pulse Rate 74 75 74 Respiratory Rate 17 16 13 Blood Pressure Pulse Oximetry 100 100 99 Oxygen Delivery 06/18/22 21:00 06/18/22 21:01 06/18/22 21:15 Temperature Pulse Rate 70 73 73 Respiratory Rate 12 16 13 Blood Pressure 138/98 H Pulse Oximetry 97 98 98 Oxygen Delivery 06/18/22 21:30 06/18/22 21:31 06/18/22 21:55 Temperature Pulse Rate 68 65 74 Respiratory Rate 12 13 16 Blood Pressure 147/107 H Pulse Oximetry 95 100 100 Oxygen Delivery 06/18/22 22:00 06/18/22 22:15 06/18/22 22:30 Temperature Pulse Rate 71 Respiratory Rate 14 Blood Pressure Pulse Oximetry 100 100 100 Oxygen Delivery 06/18/22 22:45 06/18/22 23:36 06/18/22 23:48 Temperature 97.6 F Pulse Rate 76 71 Respiratory Rate 16 18 Blood Pressure 148/90 H 122/88 140/91 H Pulse Oximetry 99 100 99 Oxygen Delivery 06/19/22 00:00 06/19/22 02:00 06/19/22 04:00 Temperature Pulse Rate 68 72 67 Respiratory Rate Blood Pressure Pulse Oximetry Oxygen Delivery 06/19/22 04:00 06/19/22 05:49 06/19/22 04:00 Temperature 97.9 F Pulse Rate 68 66 64 Respiratory Rate 18 18 Blood Pressure 140/86 Pulse Oximetry 99 98 Oxygen Delivery Room Air 06/19/22 08:00 06/19/22 08:00 05/24
--- NOTE | 2022-06-19 15:32 | PM.DS ---
DS: Admitting Diagnosis Discharge Date 06/19/22 Admitting Diagnosis Chest pain DS: Discharge Diagnosis Discharge Diagnosis (1) Chest pain: Code(s): R07.9 - Chest pain, unspecified Status: Acute (2) Hypercholesterolemia: Code(s): E78.00 - Pure hypercholesterolemia, unspecified Status: Acute (3) Hypertension: Code(s): I10 - Essential (primary) hypertension Status: Acute (4) Pulmonary embolism: Code(s): I26.99 - Other pulmonary embolism without acute cor pulmonale Status: Acute DS: Summary Hospital Course Reason for hospitalization: 56yo male with hx of HTN, HLD and PE here for chest pain. Please see H&P for details Hospital Course: Patient has had chest pain off and on for the past 10 months since his PE but has been more constant recently.? He was hospitalized at another facility for the chest pain recently.? He states the stress test was abnormal and a heart catheterization was recommended but patient refused.? He left the hospital and presented to our emergency room with complaints of chest pain.? He was under the impression that he could have a CT of his heart to help determine if he has heart disease. Patient with pleuritic atypical chest pain.? Symptoms improved with GI cocktail.? Troponins are negative.? EKG showing no acute findings.? Presumably he has had a recent abnormal stress test had another hospital and we are awaiting records.? Discussed with Cardiology.? Patient is on Eliquis so this would have to be held for 2 days before his heart catheterization could be performed.? The line mechanic also stated that we do not perform CT angiogram of the coronary vessels here.? This was explained to the patient.?Patient requested discharge. Plan for him to follow up with Cardiology after discharge Status at Discharge Cognitive/behavioral status at discharge: Stable Time Spent with Patient Time attestation: Total time spent providing and/or coordinating discharge services:34 minutes Time spent: Greater than 30 minutes Exam Narrative: AF 97.6 117/79 73 12 99% ra Gen - NARD Chest - CTA bilaterally, nml RR CV - RRR S1/S2.Telemetry showing no significant dysrhythmia Abd - Soft, NT/ND, Positive BS Ext - No pedal edema Neuro - Alert and oriented. Nonfocal exam. Psych - Nml mood and affect Skin - Warm and dry DS: Data Data Completed and Pending Labs on day of discharge: Labs from last 24 hours 06/19/22 06/19/22 06/19/22 04:21 04:21 04:21 WBC 4.9 RBC 4.89 Hgb 14.9 Hct 42.9 MCV 87.7 MCH 30.5 MCHC 34.7 RDW 12.5 Plt Count 225 MPV 9.6 Immature Gran % (Auto) 0.2 Neut % (Auto) 55.8 Lymph % (Auto) 30.4 [place] % (Auto) 12.2 H Eos % (Auto) 1.0 Baso % (Auto) 0.4 Lymph # (Auto) 1.49 [place] # (Auto) 0.6 Eos # (Auto) 0.1 Baso # (Auto) 0.0 Abs Immat Gran (auto) 0.01 Absolute Neuts (auto) 2.7 Absolute Nucleated RBC 0.0 Nucleated RBC % 0.0 Sodium 139 Potassium 3.8 Chloride 100 Carbon Dioxide 31 H Anion Gap 8 BUN 18 Creatinine 1.10 Estim Creat Clear Calc 92 Estimated GFR > 60 Glucose 105 Calcium 8.8 Total Bilirubin 0.8 AST 28 ALT 21 Alkaline Phosphatase 66 Troponin I < 0.012 D Total Protein 7.0 Albumin 4.3 Lipase TSH Influenza A (RT-PCR) Influenza B (RT-PCR) SARS-CoV-2 RNA (RT-PCR) 06/19/22 06/18/22 06/18/22 01:16 22:05 15:37 WBC RBC Hgb Hct MCV MCH MCHC RDW Plt Count MPV Immature Gran % (Auto) Neut % (Auto) Lymph % (Auto) [place] % (Auto) Eos % (Auto) Baso % (Auto) Lymph # (Auto) [place] # (Auto) Eos # (Auto) Baso # (Auto) Abs Immat Gran (auto) Absolute Neuts (auto) Absolute Nucleated RBC Nucleated RBC % Sodium Potassium Chloride Carbon Dioxide Anion Gap BUN Creatinine Estim Creat Clear
== END 2022-06-19 16:38 | disposition home or self-care (01) ==
LOC: ANHED 21:54 → ANHIMU 06-19 00:38
PROVIDERS: Admitting Provider Internal Medicine; Emergency Provider Emergency Medicine; Visit Provider Internal Medicine
DX: I26.99 Other pulmonary embolism without acute cor pulmonale (principal); E78.00 Pure hypercholesterolemia, unspecified; I10 Essential (primary) hypertension; I45.2 Bifascicular block; Z20.822 Contact with and (suspected) exposure to COVID-19; Z79.01 Long term (current) use of anticoagulants; Z79.899 Other long term (current) drug therapy
CPT/HCPCS: 36415; 71046; 80053; 83690; 84443; 84484; 85025; 87502; 93005; 99285; A9270; G0378; U0003; U0005